=== PATIENT | female | born 1965 | race Caucasian/White ===

== ENCOUNTER → 2017-01-30 | Outpatient (CLI) | payer BC ==
--- NOTE | 2017-01-30 13:30 | RAD ---
Chest CT without contrast History: Interstitial lung disease. Follow-up study. Comparison: February 02, 2016. Technique: Noncontrast helical CT scanning of the chest was performed. Without IV contrast, the sensitivity to detect organ pathology is decreased. PQRS Compliance Statement: One or more of the following individualized dose reduction techniques were utilized for this examination: 1. Automated exposure control 2. Adjustment of the mA and/or kV according to patient size 3. Use of iterative reconstruction technique Findings: No enlarged thoracic lymphadenopathy is evident. No focal aneurysmal dilatation of the thoracic aorta is seen. Heart size is not enlarged. There is calcified atheromatous disease of the coronary arteries. No pericardial effusion is seen. Bilateral peripheral interstitial lung disease is seen consistent with interstitial fibrosis. There is a lower lung zone predominance. This is stable. No new lung consolidation or lung mass is seen. No pleural effusion or pneumothorax is evident. The proximal bronchial tree is patent. No osteolytic process is seen. No adrenal mass is evident. IMPRESSION: Stable interstitial pulmonary fibrosis. No new lung infiltrate is seen. Calcified atheromatous disease of the coronary arteries.
== END | disposition home or self-care (01) ==
LOC: CT 09:51
PROVIDERS: ATTEND Internal Medicine Critical Care Medicine
DX: J84.9 Interstitial pulmonary disease, unspecified (principal)
CPT/HCPCS: 71250

== ENCOUNTER → 2018-09-09 | Outpatient (CLI) | payer BC ==
--- NOTE | 2018-09-09 13:05 | RAD ---
Examination: CT CHEST WO CONTRAST History: ILD
PREVIOUS Comparison/Correlation: 09/29/2014 CT of chest high-resolution, 02/02/2016 CT chest without contrast, 01/30/2017 CT chest without contrast Findings: Axial images of the chest were obtained without contrast. Sagittal and coronal reformatted images were provided. Coronary arterial calcifications are moderately advanced for the patient's age within the left anterior descending and right coronary artery distributions. No enlarged thoracic lymph nodes. Main pulmonary artery is somewhat distended with diameter of up to 3.8 cm transverse. Subtle interstitial thickening of the lung quevedo is noted primarily in subpleural distribution. Punctate nodularity is noted involving the lateral left lower lung field in particular is a similar compared to previous exam. Pleural based nodule evident at the lateral left upper to mid thoracic level anteriorly is seen on coronal image 30 of series 5 and axial image 21 of series 3. It has increased in size currently measuring 0.8 cm longitudinal by 1.2 cm anteroposterior by 0.7 cm transverse. This nodule has increased by 0.3 cm in the longitudinal dimension. It is more evident in the axial plane compared to prior exam. No enlarged thoracic lymph nodes. The tracheobronchial tree is unremarkable. Cholecystectomy is evident. Diverticulosis is partially seen. Bony structures are unremarkable for the patient's age. Impression: Increased size of left lateral upper lung field level pleural-based nodule. Consider further evaluation with PET CT exam. Interstitial thickening and punctate nodularity of the lung quevedo is similar compared to prior exam. Discussed with Dr. Lal on 09/09/2018 at 1:00 PM. Electronically signed by: Ralph Nunez MD (09/09/2018 1:02 PM) [facility]
== END | disposition home or self-care (01) ==
LOC: CT 09:13
PROVIDERS: ATTEND Internal Medicine Critical Care Medicine
DX: E04.1 Nontoxic single thyroid nodule (principal); I25.10 Atherosclerotic heart disease of native coronary artery without angina pectoris; K57.90 Diverticulosis of intestine, part unspecified, without perforation or abscess without bleeding; Z90.49 Acquired absence of other specified parts of digestive tract
CPT/HCPCS: 71250

== ENCOUNTER → 2019-01-15 | Outpatient (CLI) | payer BC ==
--- NOTE | 2019-01-15 11:20 | RAD ---
CT of the chest without contrast, 01/15/2019: HISTORY: Interstitial lung disease, follow-up nodule Noncontrast scans were obtained and compared to a study from 09/09/2018. There are moderate reticular and interstitial opacities in both lungs which are predominantly peripheral and subpleural in distribution. There are a few small associated calcifications. No new or enlarging pulmonary or pleural opacities are seen. The small opacity abutting the pleura in the anterolateral aspect of the left upper lobe described on the previous study is unchanged to perhaps slightly improved. There is calcific plaquing the aorta without evidence of aneurysm. Scattered coronary artery calcifications are present. No mediastinal adenopathy is evident. Moderate scattered degenerative changes are present in the spine. IMPRESSION: 1. Stable interstitial lung disease/fibrosis. 2. Coronary artery disease. 3. No new abnormality is detected. PQRS Compliance Statement: One or more of the following individualized dose reduction techniques were utilized for this examination: 1. Automated exposure control 2. Adjustment of the mA and/or kV according to patient size 3. Use of iterative reconstruction technique Electronically signed by: Claus Dowd MD (01/15/2019 11:17 AM) [facility]
== END | disposition home or self-care (01) ==
LOC: CT 09:25
PROVIDERS: ATTEND Internal Medicine Critical Care Medicine
DX: J84.89 Other specified interstitial pulmonary diseases (principal); J84.10 Pulmonary fibrosis, unspecified; I25.10 Atherosclerotic heart disease of native coronary artery without angina pectoris
CPT/HCPCS: 71250

== ENCOUNTER → 2019-11-18 | Outpatient (CLI) | payer BC ==
--- NOTE | 2019-11-18 14:21 | RAD ---
CT of the chest without contrast, 11/18/2019 INDICATION: Disease. History of lung nodule. COMPARISON STUDY: CT chest without contrast January 15, 2019. TECHNIQUE: Multidetector CT imaging of the chest without contrast. FINDINGS: Heart size is normal. Some coronary calcification is noted. No pathologically enlarged mediastinal adenopathy is identified. Limited evaluation of the upper abdomen demonstrates no acute abnormality. No acute osseous changes are seen. No pneumothorax, pleural effusion, or new acute focal infiltrate is identified. Basilar, and predominantly peripheral and subpleural reticular opacities, with associated areas of high attenuation/groundglass pattern are again noted, similar to prior exam. No new nodules or masses are identified. Minimal basilar bronchiectasis appears to be present. Gross honeycombing is seen. IMPRESSION: 1. Grossly stable interstitial lung disease/fibrosis 2. Otherwise stable chest CT DOSING PQRS STATEMENT: One or more of the following individualized dose reduction techniques were utilized for this examination: 1. Automated exposure control 2. Adjustment of the mA and/or kV according to patient size 3. Use of iterative reconstruction technique Electronically signed by: Mars Farr MD (11/18/2019 2:18 PM) [id number]
== END | disposition home or self-care (01) ==
LOC: CT 09:48
PROVIDERS: ATTEND Internal Medicine Critical Care Medicine
DX: I25.10 Atherosclerotic heart disease of native coronary artery without angina pectoris (principal); J84.9 Interstitial pulmonary disease, unspecified
CPT/HCPCS: 71250

== ENCOUNTER → 2021-12-22 | Outpatient (CLI) | payer BC ==
--- NOTE | 2021-12-22 14:26 | RAD ---
CT THORAX WO History: Interstitial lung disease. Comparison: 04/18/2020, 01/30/2017. Technique: Noncontrast CT of the chest. Findings: Assessment is limited by lack of IV contrast. Cardiovascular: Normal caliber aorta with mild atherosclerotic calcifications. Moderate coronary armani ry calcifications. Normal heart size. No pericardial effusion. Mediastinum and juanito: No adenopathy. Airways, lungs and pleura: The central airways are clear. No bronchiectasis. There are primarily dimple pheral upper and lower lobe reticular and groundglass opacities which are in similar distribution to comparison exams, with perhaps mild increase in severity. No emphysema, the honeycombing or air farshad ing identified. Stable left 5 mm left fissural nodule likely intrafissural lymph node. No pleural eff usion or pneumothorax. Upper abdomen: Cholecystectomy clips. Mild pancreatic atrophy. Punctate nonobstructing right nephroli thiasis. Osseous structures and soft tissues: Mild degenerative endplate changes throughout the thoracic spine . No acute osseous abnormality. Impression: 1. Redemonstrated findings associated with interstitial lung disease characterized by peripheral donald undglass and reticular opacities with mild increase in overall severity. ------ Exposure: One or more of the following individualized dose reduction techniques were utilized for thi s examination: 1. Automated exposure control 2. Adjustment of the mA and/or kV according to patient size 3. Use of iterative reconstruction technique. Electronically signed by: Kyaw Bang MD (12/22/2021 2:23 PM) [id number]
== END ==
LOC: CT 10:15
PROVIDERS: ATTEND Internal Medicine Pulmonary Disease
DX: J84.9 Interstitial pulmonary disease, unspecified (principal); I25.10 Atherosclerotic heart disease of native coronary artery without angina pectoris; N20.0 Calculus of kidney; K86.89 Other specified diseases of pancreas; M47.814 Spondylosis without myelopathy or radiculopathy, thoracic region; Z90.49 Acquired absence of other specified parts of digestive tract
CPT/HCPCS: 71250